=== PATIENT | female | born 1970 | race Caucasian/White ===

== ENCOUNTER 2019-01-24 16:00 | Inpatient (IN) | payer OTHER ==
[~2019-01-24] VITALS: Ht 170.2 cm; Wt 68.5 kg
[~2019-01-24 16:00] MED LIST: ALLEGRA60 MG PO; ATIVAN1 MG PO; DEPAKOTE500 MG PO; LYRICA PO; PRINIVIL10 MG; VICODIN ES 7.51 EACH PO; ZYPREXA20 MG
[2019-01-24 17:20] LABS: URINE BILIRUBIN NEGATIVE (Negative); URINE BLOOD 2+ (Negative); URINE CLARITY CLEAR; URINE COLOR YELLOW; URINE GLUCOSE-RANDOM* NEGATIVE (Negative); URINE KETONES NEGATIVE (Negative); URINE LEUKOCYTES-REFLEX NEGATIVE (Negative); URINE NITRITE-REFLEX NEGATIVE (Negative); URINE PROTEIN (DIPSTICK) 3+ (Negative); URINE SPECIFIC GRAVITY 1.015 (1.005-1.035); URINE UROBILINOGEN 0.2 E.U./dl (0.2-1.0)
[2019-01-24 17:29] LABS: AMP/METHAMP Negative (Negative); BARBITURATES Negative (Negative); BENZODIAZEPINES Negative (Negative); COCAINE Negative (Negative); METHADONE Negative (Negative); OPIATES POSITIVE (Negative); PCP Negative (Negative)
[2019-01-24 17:35] LABS: BACTERIA-REFLEX 1-9 Few /HPF (None Seen); CASTS None Seen /LPF (None Seen); CRYSTALS None Seen /LPF (None Seen); SQUAMOUS 0-3 Few /LPF (0-3); URINE WBC-REFLEX 0-5 Rare /HPF (0-5)
[2019-01-24 17:43] LABS: HEMATOCRIT 24.7 % (37.0-47.0); HEMOGLOBIN 8.1 gm/dL (12.0-15.0); MCH 28.3 pg (26.0-34.0); MCHC 32.6 g/dL (28.0-37.0); MCV 86.8 fL (80.0-100.0); RBC 2.85 mil/uL (4.20-5.00); RDW 19.1 % (10.5-14.5); WBC 16.6 thou/uL (4.0-11.0)
[2019-01-24 17:52] LABS: CALCIUM 9.1 mg/dL (8.5-10.1); CREATININE 4.7 mg/dL (0.6-1.0); POTASSIUM 4.1 mmol/L (3.5-5.1)
[2019-01-24 17:55] LABS: APTT 35.8 Seconds (24.5-32.8); INR 1.2; PROTIME 12.2 Seconds (9.3-11.4)
[2019-01-24 17:59] LABS: ALBUMIN 2.9 g/dL (3.4-5.0); TOTAL BILIRUBIN 0.5 mg/dL (<0.1-1.0); TOTAL PROTEIN 6.7 g/dL (6.4-8.2)
[2019-01-24 19:23] VITALS: BP 101/57
[2019-01-24 20:03] VITALS: BP 100/64
[2019-01-24] MEDS ORDERED: PREGABALIN225 MG PO (22:43)
[2019-01-24] MEDS ORDERED: NORCO 10-325 T1 EACH PO (22:43)
[2019-01-24] MEDS ORDERED: ATORVASTATIN CA20 MG PO (22:44)
[2019-01-24] MEDS ORDERED: ZANTAC 150MG T150 M1 PO (22:45)
[2019-01-24] MEDS ORDERED: AMOXICILLIN500 M1 PO (22:58)
[2019-01-24] MEDS ORDERED: PROAIR HFA8.5 GM INH (22:59)
[2019-01-24] MEDS ORDERED: SPIRIVA18 MCG INH (22:59)
[2019-01-24] MEDS ORDERED: FEXOFENADINE H180 MG PO (23:00)
[2019-01-24] MEDS ORDERED: ADVAIR 250-501 EACH INH (23:01)
[2019-01-24] MEDS ORDERED: IPRAT-ALBUT 0.5-3 ML IH (23:02)
[2019-01-24] MEDS ORDERED: ONDANSETRON HCL4 M3 PO (23:04)
[2019-01-24] MEDS ORDERED: WARFARIN SODIU7.5 MG PO (23:05)
[2019-01-24] MEDS ORDERED: FUROSEMIDE 40 M40 MG PO (23:06)
[2019-01-24] MEDS ORDERED: COLACE100 MG PO (23:07)
[2019-01-24] MEDS ORDERED: CLONAZEPAM 0.50.5 M1 PO (23:08)
[2019-01-25 00:19] VITALS: BP 92/53
[2019-01-25 03:08] VITALS: BP 92/53
[2019-01-25] MEDS ORDERED: MOVANTIK25 MG PO (03:54)
[2019-01-25 04:30] VITALS: BP 98/66
--- NOTE | 2019-01-25 04:51 | NUR ---
PT NEW ADMIT OF 1999. ALERT AND ORIENTED. SIGNIFICANT OTHER AT THE BEDSIDE. PT REPORTS MILD SOA, WHEEZING AND COURSE LUNG SOUNDS NOTED. RT NOTIFIED. MED REC DONE MUCH POSSIBLE. PT SEEMS NOT TO BE SURE OF ALL MEDS SHE CURRENTLY TAKES. ADMISSION ASSESSMENT COMPLETE DOCUMENTED. PT ORIENTED TO ROOM. CONSENT FORMS SIGNED. NO OTHER CONCERNS NOTED. WILL CONTINUE WITH PLAN OF CARE
[2019-01-25 05:29] LABS: CALCIUM 8.8 mg/dL (8.5-10.1); CREATININE 4.9 mg/dL (0.6-1.0); POTASSIUM 3.9 mmol/L (3.5-5.1)
[2019-01-25 05:32] LABS: ALBUMIN 2.5 g/dL (3.4-5.0); PHOSPHORUS 4.1 mg/dL (2.5-4.9)
[2019-01-25 05:54] LABS: INR 1.1; PROTIME 11.9 Seconds (9.3-11.4)
[2019-01-25 08:00] VITALS: BP 113/70
--- NOTE | 2019-01-25 09:53 | NUR ---
Initial high nutrition screening risk for pt with wt loss and decreased appetite. Upon visit, had just finished breakfast ate about 75%. Admitted with pneumonia and hemoptysis, CKD4. Hx meth and cocaine use. Pt falling asleep mid sentence but able to state her wt down just 5-7 lb but usually has no problems with appetite. BMI is 23.6. Low nutrition risk at this time.
--- NOTE | 2019-01-25 15:43 | NUR ---
Patient admits with PNA. She lives in [facility] in [facility]. She reports all needs on one level. Her dtr and dtrs fiance Sharad staying with her. Her boyfriend at the bedside lives nearby throughtout conversation boyfriend hunched over with his oxygen tank. Patient asked casemgt to check if hes alive. He arouses and at times contributes to conversation but minimal. Patient with collor on her neck she reports it happened due to police mishandled her when they were after another person. She did tell another RN it was mishandled when she was taking into custody for DUI. This mishandled incident happened in 2014. She reports Dr Chamberlain and Dr Santiago both her cafe lead. Her PCP was Dr Bernardino Guevara but she had "words" with his staff so no longer seeing him. When questioned who is her current PCP patient reports Kallie Mcintyre who is a RN practioner. Patient reports she ambulates with a walker at home and has "govt funded" homemakers 4 hours a day 7 days a week from [employer]. 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 Patients family would like patient tested for lupus. Questioned patient why she believes she has Lupus and she reports she has "outbursts." Updated RN of her request. Patient plans home independently at co. She has homemakers and equipt in place. NO dc needs noted.
[2019-01-25 20:04] VITALS: BP 96/60
--- NOTE | 2019-01-25 20:29 | NUR ---
ASSUMMED PT CARE AT APPROXIMATELY AT 0700. PT A&O X4. FORGETFUL. PT DENIES HAVING CHEST PAIN. PT STATES SHE BECOMES SOB ON EXERSION. PT O2 SAT STABLE. PT STATES SHE HAS ACUTE PAIN. PT RECEIVED ANALGESICS. PT STATED ANALGESICS HELPED RELIEVE PAIN. PT WILL SOMETIMES NOT RECALL CONVERSATIONS THAT I HAD C THE PT MOMENTS AGO. FREQUENT REORIENTATION PROVIDED. PT AND PT'S FAMILY EDUCATED ABOUT POC. PT AND PT'S FAMILY STATED UNDERSTANDING AND DENIED HAVING FURTHER QUESTIONS. PT'S IN ROOM STARTED BECOMING NOT ORIENTED. PT'S STATED TO PT THAT, "THE STUFF YOUR SISTER IS SELLING US I CAN'T TAKE NO MORE." THE PT'S ALSO STATED THAT HE WAS HEARING THINGS. I BECAME SUSPICIOUS THAT THE WAS TAKING MEDICATIONS/DRUGS WHILE IN THE HOSPITAL. THE PT ALSO REQUESTED MORE ANALGESICS. I EDUCATED THE PT THAT I COULD NOT GIVE HER ANALGESICS AT THE TIME DUE TO THE PRN TIME FREQUENCY. THE PT STATED SHE WANTED TO LEAVE. THE IN THE ROOM THEN ASKED ME,"CAN YOU GIVE ME HYDROCODONE?" I EDUCATED TO THE THAT I COULD NOT GIVE HIM MEDICATIONS. I NOTIFIED DR OF PT'S AND 'S BEHAVIOR. I ALSO NOTIFIED THE DR THAT THE PT WANTED TO LEAVE AMA. DR STATED TO CALL SECURITY AND PACKAGE SORTER. SECURITY AND PACKAGE SORTER NOTIFIED. AWAITING SECURITY AND PACKAGE SORTER TO ARRIVE. PT VITAL SIGNS STABLE. PT COMFORTABLE IN BED. PT DENIES HAVING OTHER CONCERNS AT THIS TIME. EDUCATED SUPERVISOR [employer]ANT NURSE. SUPERVISOR [employer]ANT NURSE STATED UNDERSTANDING AND DENIED HAVING FURTHER QUESTIONS.
--- NOTE | 2019-01-25 21:06 | NUR ---
CALLED BY STAFF STATING A DOG WAS IN THE PATIENT'S ROOM. STOPPED BY ROOM AND SMALL BLACK AND WHITE DOG PRESENT AT BEDSIDE WITH THREE FAMILY MEMBERS PRESENT. POLICY ON PET VISITATION PROVIDED TO FAMILY WHO BROGHT THE DOG. INSTRUCTED THAT THE DOG COULD NOT COME BACK UNLESS APPROVED THROUGH THE PROPER DEPARTMENTS. FAMILY VOICED UNDERSTANDING. ALSO STATED ANIMAL COULD NOT BE PRESENT IN PATIENT CARE AREAS. FAMILY AGAIN STATED UNDERSTANDING. FAMILY STATES DOG IS A SERVICE ANIMAL FOR THE PATIENT. STAFF ON THE FLOOR UPDATED AND NIGHT RN PRESENT DURING CONVERSATION OF POLICY WITH FAMILY.
[2019-01-26 00:35] VITALS: BP 82/45
[2019-01-26 01:02] VITALS: BP 94/55
[2019-01-26 05:06] LABS: HEMATOCRIT 21.6 % (37.0-47.0); HEMOGLOBIN 7.1 gm/dL (12.0-15.0); MCH 28.8 pg (26.0-34.0); MCHC 32.7 g/dL (28.0-37.0); MCV 88.1 fL (80.0-100.0); RBC 2.45 mil/uL (4.20-5.00); RDW 19.6 % (10.5-14.5)
[2019-01-26 06:10] VITALS: BP 82/50
--- NOTE | 2019-01-26 06:24 | NUR ---
ASSUMED PT CARE AT 1900. VSS EXCEPT BP WHICH WAS SOFT BUT MAP WAS AT LEAST 65. PT A&0X4. PT APPEARS STABLE ON HER FEET AMBULATING TO THE BATHROOM. SLIGHT DARK RED BLEEDING NOTED IN PT'S SPUTUM; (SPUTUM VOLUME WAS SMALL) LAST NIGHT. FAMILY(DAUGTHER WHO IS THE CAREGIVER, DAUGHTERS BOYFRIEND AND PT'S BOYFRIEND WHO IS DAUGHTER'S CHIMNEY BUILDER BRICK WERE IN THE ROOM LAST NIGHT). PT WAS GOING TO LEAVE AMA BUT I WAS ABLE TO SUCCESSFULLY TALK HER OUT OF IT. PT PT'S BOYFRIEND HAD HIS OWN Rx HYDROCODONE, I INSTRUCTED THE DAUGHTER THAT HYDROCODOE NEEDED TO BE TAKEN HOME WITH HER IT COULDNT BE IN THE PATIENT'S VICINITY. PT'S CAREGIVER (DAUGHTER ALSO METIONED THAT SHE IS NOT SUPPOSED TO BE ON LYRICA, BUT PT IS ADAMANT AND WOULD FLIP OUT IF SHE CANNOT HAVE IT. COPY OF P'S CURRENT MEDS AND DOCTORS THAT PT SEE IS IN CHART. PT IS STABLE, SHE HAD A FAIRLY GOOD NIGHT, WILL CONTINUE TO MONITOR PER POC.
[2019-01-26 08:00] VITALS: BP 97/51
[2019-01-26] MEDS ORDERED: AUGMENTIN 875-1 EACH PO (09:36)
[2019-01-26] MEDS ORDERED: VICODIN ES 7.51 EACH PO (09:38)
[2019-01-26 11:09] VITALS: BP 97/51
== END 2019-01-26 12:29 | disposition home or self-care (01) | DRG 177 ==
LOC: ER 16:00 → EROBS 18:20 → 2N 18:20
PROVIDERS: Emergency Medicine; ADMIT Hospitalist
DX: J15.6 Pneumonia due to other Gram-negative bacteria (principal); E43 Unspecified severe protein-calorie malnutrition; N18.4 Chronic kidney disease, stage 4 (severe); R04.2 Hemoptysis; K21.9 Gastro-esophageal reflux disease without esophagitis; R31.9 Hematuria, unspecified; F17.210 Nicotine dependence, cigarettes, uncomplicated; I12.9 Hypertensive chronic kidney disease with stage 1 through stage 4 chronic kidney disease, or unspecified chronic kidney disease; D64.9 Anemia, unspecified; Z90.49 Acquired absence of other specified parts of digestive tract; Z88.2 Allergy status to sulfonamides; Z88.8 Allergy status to other drugs, medicaments and biological substances; Z86.711 Personal history of pulmonary embolism; Z79.899 Other long term (current) drug therapy
CPT/HCPCS: 10081

== ENCOUNTER 2020-04-25 20:42 | Emergency (ER) | payer OTHER ==
[~2020-04-25] VITALS: Ht 170.2 cm; Wt 59.0 kg
[~2020-04-25 20:42] MED LIST changes: +ADVAIR 250-501 EACH INH; +AMOXICILLIN500 M1 PO; +ATORVASTATIN CA20 MG PO; +AUGMENTIN 875-1 EACH PO; +CLONAZEPAM 0.50.5 M1 PO; +COLACE100 MG PO; +FEXOFENADINE H180 MG PO; +FUROSEMIDE 40 M40 MG PO; +IPRAT-ALBUT 0.5-3 ML IH; +MOVANTIK25 MG PO; +NORCO 10-325 T1 EACH PO; +ONDANSETRON HCL4 M3 PO; +PREGABALIN225 MG PO; +PROAIR HFA8.5 GM INH; +SPIRIVA18 MCG INH; +WARFARIN SODIU7.5 MG PO; +ZANTAC 150MG T150 M1 PO
[2020-04-25 21:56] LABS: ABSOLUTE NEUTROPHILS 2.3 thou/uL (1.4-8.2); BASOPHILS 1.1 % (0.0-2.0); EOSINOPHILS 2.9 % (0.0-3.0); HEMATOCRIT 37.9 % (37.0-47.0); HEMOGLOBIN 12.2 gm/dL (12.0-15.0); LYMPHOCYTES 32.4 % (24.0-44.0); MCH 28.9 pg (26.0-34.0); MCHC 32.3 g/dL (28.0-37.0); MCV 89.4 fL (80.0-100.0); PLATELET COUNT 178 thou/uL (150-400); POLYS 50.6 % (36.0-66.0); RBC 4.23 mil/uL (4.20-5.00); RDW 16.3 % (10.5-14.5); WBC 4.6 thou/uL (4.0-11.0)
[2020-04-25 22:05] LABS: ANION GAP 6 mmol/L (7-16); BUN 36 mg/dL (7-18); CALCIUM 8.3 mg/dL (8.5-10.1); CHLORIDE 100 mmol/L (98-107); CO2 31 mmol/L (21-32); CREATININE 4.4 mg/dL (0.6-1.0); GLUCOSE 89 mg/dL (74-106); POTASSIUM 4.1 mmol/L (3.5-5.1); SODIUM 137 mmol/L (136-145)
[2020-04-25 22:09] LABS: INR 1.1; PROTIME 11.8 Seconds (9.3-11.4)
[2020-04-25 22:15] LABS: ALBUMIN 3.3 g/dL (3.4-5.0); SGOT 23 U/L (15-37); SGPT 24 U/L (30-65); TOTAL BILIRUBIN 0.4 mg/dL (0.2-1.0); TOTAL PROTEIN 7.5 g/dL (6.4-8.2); TROPONIN-I <0.06 ng/mL (<0.06)
[2020-04-26] MEDS ORDERED: HYDROCODON-ACE1 EAC8 PO (01:53)
[2020-04-26 02:12] VITALS: BP 98/64
--- NOTE | 2020-04-26 07:13 | EKG ---
[facility] [employer] [place] [address] ELECTROCARDIOGRAM REPORT Name: SOCRATES LANGFORD Room #: DEP [facility]#: [id number] Admission: 04/25/20 Attend Phys: Discharge: 04/26/20 Date of : 66 Report #: [id number] [facility] ED Test Date: 2020-04-25 Test Time: 20:51:32 Pat Name: SOCRATES LANGFORD Department: Room: Gender: F Machine Joint Cutter: : 1970 Requested By: Ford Darnell Order Number: [id number] MD: Sharad Dorantes Measurements Intervals [place] Rate: 67 P: -54 RI: 140 QRS: 57 QRSD: 138 T: 30 QT: 464 QTc: 490 Interpretive Statements Sinus or ectopic atrial rhythm IVCD, consider atypical RBBB Probable left ventricular hypertrophy Compared to ECG 02/03/2010 09:16:52 Ectopic atrial rhythm now present Sinus rhythm no longer present Short RI interval no longer present Electronically Signed On 04-26-2020 7:13:30 [employer] by Sharad Dorantes [email or web address] <ELECTRONICALLY SIGNED> By: Sharad Dorantes MD, [facility] 02/712 50 50 Sharad Dorantes MD, [facility] /EPI
== END 2020-04-26 02:34 | disposition home or self-care (01) ==
LOC: ER 20:42
PROVIDERS: Emergency Medicine; Physician Assistant
DX: R07.9 Chest pain, unspecified (principal); K21.9 Gastro-esophageal reflux disease without esophagitis; E78.5 Hyperlipidemia, unspecified; Z90.89 Acquired absence of other organs; Z79.899 Other long term (current) drug therapy; Z88.1 Allergy status to other antibiotic agents; Z88.5 Allergy status to narcotic agent; Z88.8 Allergy status to other drugs, medicaments and biological substances